=== PATIENT | female | born 1995 | race Caucasian/White ===

== ENCOUNTER 2022-06-26 22:02 | Emergency (ER) | payer SELFPAY ==
[~2022-06-26] VITALS: Ht 165.1 cm; Wt 68.0 kg
[2022-06-26 22:05] VITALS: BP 113/65
[2022-06-27] MEDS ORDERED: NAPR-681 PO (00:12)
[2022-06-27] MEDS: BACITRACIN ZINC OINT UDPKT TOP ONE (00:28)
== END 2022-06-27 00:28 | disposition home or self-care (01) ==
LOC: ER 22:02
DX: S01.01XA Laceration without foreign body of scalp, initial encounter (principal); W18.39XA Other fall on same level, initial encounter; Y93.89 Activity, other specified; Y92.89 Other specified places as the place of occurrence of the external cause; Y99.8 Other external cause status
CPT/HCPCS: 99283; Z7610